=== PATIENT | female | born 1975 | race Caucasian/White ===

== ENCOUNTER 2016-07-29 | Emergency (ER) | payer OTHER | END 2016-07-29 15:25 | disposition home or self-care (01) ==

== ENCOUNTER 2019-02-09 13:40 | Emergency (ER) | payer OTHER ==
[2019-02-09] MEDS ORDERED: TETANUS/DIPHTHERIA/PERTUSSIS 0.5 ML SYRINGE IM ONE (14:33)
[2019-02-09] MEDS ORDERED: LIDOCAINE 2% 10 ML MDV SUBQ STA (14:54)
--- NOTE | 2019-02-09 15:12 | ED Physician Documentation ---
PD HPI UPPER EXT INJURY - Stated complaint Stated Complaint: ARM LAC - Chief complaint Chief Complaint: Laceration - History obtained from History obtained from: Patient - History of Present Illness Location: Right, Forearm (laceration on glass) Type of injury: Laceration Where injury occurred: Home Timing - onset: How many hours ago (1) Timing - duration: Hours (1) Timing - details: Abrupt onset Pain level max: 3 Pain level now: 2 Improved by: Rest Worsened by: Moving, Palpating Associated symptoms: No: Weakness, Numbness, Tingling, Swelling Contributing factors: No: Anticoagulated Similar symptoms before: Has not had sx before Recently seen: Not recently seen - Additonal information Additional information: Patient is right-handed. Unknown last tetanus Review of Systems Constitutional: denies: Fever, Chills GI: denies: Vomiting, Diarrhea Skin: denies: Rash Musculoskeletal: denies: Neck pain, Back pain Neurologic: denies: Headache PD PAST MEDICAL HISTORY - Past Medical History Cardiovascular: None Respiratory: None Endocrine/Autoimmune: None - Past Surgical History Past Surgical History: Yes HEENT: Tonsil/Adenoidectomy - Present Medications Home Medications: Ambulatory Orders Medication Instructions Recorded Confirmed Ascorbic Acid [Vitamin C] 1,000 mg BID 07/29/16 07/29/16 Cholecalciferol (Vitamin D3) 5,000 units 07/29/16 [Vitamin D3] Cytoxyme 2 Tab Bid 07/29/16 Magnesium 1 tab BID 07/29/16 07/29/16 Metholated B 07/29/16 [place]-3/Dha/Epa/Fish Oil [Fish Oil 1 tab TID 07/29/16 07/29/16 500 mg Softgel] Pregnenylone 10 Mg Bid 07/29/16 Quetiapine Fumarate [Seroquel] 200 mg DAILY 07/29/16 07/29/16 Thyroid,Pork [Nature-Throid] 1 tab DAILY 07/29/16 07/29/16 Vit Bcomplex 07/29/16 - Allergies Allergies/Adverse Reactions: Allergies Allergy/AdvReac Type Severity Reaction Status Date / Time Sulfa (Sulfonamide Allergy Edema Verified 02/09/19 14:19 Antibiotics) - Social History Does the pt smoke?: No Smoking Status: Never smoker Does the pt drink ETOH?: Yes Does the pt have substance abuse?: Yes PD ED PE NORMAL - Vitals Vital signs reviewed: Yes - General General: Alert and oriented X 3, No acute distress - HEENT HEENT: Moist mucous membranes - Neck Neck: Supple, no meningeal sign - Derm Derm: Warm and dry - Extremities Extremities: Other (3 cm flap laceration to the right forearm. Irregular. Neurovascularly intact) - Neuro Neuro: Alert and oriented X 3 Results - Vitals Vitals: Vital Signs - 24 hr 02/09/19 02/09/19 14:16 15:23 Temperature 36.7 C 36.5 C Heart Rate 63 61 Respiratory 14 18 Rate Blood Pressure 115/80 119/71 O2 Saturation 99 98 Oxygen O2 Source Room air Procedures - Laceration (location) R forearm Length in cm: 3 Wound type: Curved, Irregular, Flap, Into subcut fat, Clean Neurovascular status: Sensory intact, Motor intact, Vascular intact Anesthesia: Lidocaine 2% Wound Preparation: Irrigated copiously NS (250ml), Wound explored, To the base. No: FB identified Skin layer closure: [place] Other: Patient tolerated well, No complications, Neurovascular intact Complexity: Simple PD MEDICAL DECISION MAKING - ED course Complexity details: re-evaluated patient, considered differential, d/w patient ED course: 43-year-old female with a flap laceration to the right forearm. Discussed various treatment options including sutures versus jose. Elects to go jose at this time. This was performed. Tolerated well. Tdap given. Warnings of infection and instructions on wound care given at bedside. Also counseled on how to minimize scarring. Patient counseled regarding signs and symptoms for which I believe and urgent re-evaluation would be necessary. Patient with good understanding of and agreement to plan and is comfortable going home at this time This document was made in part using voice recognition software. While efforts are made to proofread this document, sound alike and grammatical errors may occur. Departure - Departure Disposition: 01 Home, Self Care Clinical Impression: Skin laceration Condition: Good Instructions: ED Laceration Ext Sutr Stap Tape Follow-Up: Jessica Carrion MD [Primary Care Provider] - (Follow-up with your doctor in approximately 10 days for staple removal. Return if you notice redness, swelling or drainage from the wound.) Comments: Follow-up with your doctor in approximately 10 days for staple removal. Return if you notice redness, swelling or drainage from the wound. Discharge Date/Time: 02/09/19 15:26
[2019-02-09] MEDS ORDERED: BACITRACIN OINT TOP STA (15:21)
[2019-02-09 15:25] VITALS: BP 119/71
== END 2019-02-09 15:26 | disposition home or self-care (01) ==
LOC: ED 13:40
DX: S51.811A Laceration without foreign body of right forearm, initial encounter (principal); W25.XXXA Contact with sharp glass, initial encounter; Y92.009 Unspecified place in unspecified non-institutional (private) residence as the place of occurrence of the external cause
CPT/HCPCS: 12002; 90471